=== PATIENT | male | born 1960 | race Caucasian/White ===

== ENCOUNTER 2018-08-11 08:13 | Day surgery (SDC) | payer OTHER ==
[~2018-08-11] VITALS: Ht 193 cm; Wt 97.3 kg
--- NOTE | 2018-08-11 12:32 | NUR ---
08/11/18 1232 Shivani Sanchez LATE ENTRY FOR TODAY DURING COLONOSCOPY 4ML NORMAL SALINE USED TO ELEVATE POLYP
== END 2018-08-11 10:31 | disposition home or self-care (01) ==
LOC: ORSCSDS 08:13
PROVIDERS: Internal Medicine Gastroenterology
PROC: 0DBP8ZX Excision of Rectum, Via Natural or Artificial Opening Endoscopic, Diagnostic (ICD-10-PCS; principal; 2018-08-11 09:30)
PROC: 0DBM8ZX Excision of Descending Colon, Via Natural or Artificial Opening Endoscopic, Diagnostic (ICD-10-PCS; principal; 2018-08-11 09:30)
DX: Z12.11 Encounter for screening for malignant neoplasm of colon (principal); D12.4 Benign neoplasm of descending colon; K62.1 Rectal polyp; K64.8 Other hemorrhoids; K57.30 Diverticulosis of large intestine without perforation or abscess without bleeding; F17.210 Nicotine dependence, cigarettes, uncomplicated
CPT/HCPCS: 88305; J1980; J2704; J7120

== ENCOUNTER 2020-02-15 16:06 | Emergency (ER) | payer OTHER ==
[~2020-02-15] VITALS: Ht 193 cm; Wt 95.2 kg
== END 2020-02-15 16:25 | disposition left against medical advice (07) ==
LOC: ER 16:06
DX: R07.9 Chest pain, unspecified (principal); Z53.21 Procedure and treatment not carried out due to patient leaving prior to being seen by health care provider
CPT/HCPCS: 93005; 93010

== ENCOUNTER 2022-03-24 07:58 | Day surgery (SDC) | payer OTHER ==
[~2022-03-24] VITALS: Ht 193 cm; Wt 94.7 kg
[2022-03-24] MEDS ORDERED: LISI20 PO (08:37)
[2022-03-24] MEDS ORDERED: Flonase 0.05% N16 GM (08:38)
--- NOTE | 2022-03-24 12:02 | NUR ---
03/24/22 1202 Delfin Mcbride PT'S DIASTOLIC BLOOD PRESSURE WAS RUNNING HIGH 100'S IN STEP DOWN. PT STATES THIS IS WHERE HIS BLOOD PRESSURE HAD BEEN BEFORE COMING TO THE CLINIC. HIS PCP IS AWARE, AND HE HAS RECENTLY STARTED LISINOPRIL.
== END 2022-03-24 11:50 | disposition home or self-care (01) ==
LOC: ORSCSDS 07:58
PROVIDERS: Otolaryngology
PROC: 0CBPXZX Excision of Tonsils, External Approach, Diagnostic (ICD-10-PCS; principal; 2022-03-24 09:25)
DX: C09.9 Malignant neoplasm of tonsil, unspecified (principal); I10 Essential (primary) hypertension; Z79.899 Other long term (current) drug therapy
CPT/HCPCS: 88305; 88331; 88341; 88342; J0330; J1100; J2001; J2405; J2704; J3010

== ENCOUNTER 2022-05-15 08:08 | Emergency (ER) | payer OTHER ==
[~2022-05-15] VITALS: Ht 193 cm; Wt 95.2 kg
[~2022-05-15 08:08] MED LIST: Flonase 0.05% N16 GM; LISI20 PO
[2022-05-15] MEDS ORDERED: METO10 PO (08:26)
[2022-05-15] MEDS ORDERED: ONDA4 PO (08:27)
[2022-05-15 08:37] LABS: BASOPHILS ABSOLUTE AUTO 0.03 K/mm3 (0.00-0.23); BASOPHILS PERCENT AUTO 0 % (0-2); EOSINOPHILS ABSOLUTE AUTO 0.02 K/mm3 (0.00-0.68); EOSINOPHILS PERCENT AUTO 0 % (0-6); Hematocrit 43.3 % (37.0-53.0); IMMATURE GRAN ABSOLUTE AUTO 0.04 K/mm3 (0.00-0.10); IMMATURE GRAN PERCENT AUTO 0 % (0-1); LYMPHOCYTES ABSOLUTE AUTO 0.68 K/mm3 (0.84-5.20); LYMPHOCYTES PERCENT AUTO 6 % (21-46); MONOCYTES ABSOLUTE AUTO 0.55 K/mm3 (0.16-1.47); MONOCYTES PERCENT AUTO 5 % (4-13); Mean Corpuscular HGB 31.7 pg (26.0-34.0); Mean Corpuscular HGB Conc 34.6 g/dL (31.5-36.5); Mean Corpuscular Volume 92 fL (80-100); Mean Platelet Volume 9.5 fL (9.1-12.4); NEUTROPHILS ABSOLUTE AUTO 10.04 K/mm3 (1.96-9.15); NEUTROPHILS PERCENT AUTO 88 % (41-73); Platelet Count 276 K/mm3 (150-400); RDW Coefficient Variation 12.1 % (11.7-14.2); RDW Standard Deviation 40.7 fL (35.1-46.3); Red Blood Cell Count 4.73 M/mm3 (4.30-5.90); White Blood Cell Count 11.36 K/mm3 (4.00-11.30)
[2022-05-15 08:54] LABS: Albumin, Blood 3.5 g/dL (3.4-5.0); Bun/Creatinine Ratio 18.7 (12.0-20.0); Calcium, Blood 9.1 mg/dL (8.5-10.1); Creatinine, Blood 0.8 mg/dL (0.60-1.20); Globulin, Blood 3.4 g/dL (2.2-4.0); Potassium, Blood 3.8 mmol/L (3.5-5.5); Total Protein, Blood 6.9 g/dL (6.4-8.2)
[2022-05-17] MEDS ORDERED: IBUP600 PO (14:39)
[2022-05-17] MEDS ORDERED: COLCHICINE0.6 MG PO (14:39)
== END 2022-05-15 11:23 | disposition home or self-care (01) ==
LOC: ER 08:08
PROVIDERS: Physician Assistant
DX: R07.9 Chest pain, unspecified (principal); C14.0 Malignant neoplasm of pharynx, unspecified; Z79.899 Other long term (current) drug therapy
CPT/HCPCS: 36415; 71046; 80053; 83880; 84484; 85025; 93005; 93010; A9270; J1885; J2270; J2405

== ENCOUNTER 2022-06-12 09:17 | Day surgery (SDC) | payer OTHER ==
[~2022-06-12] VITALS: Ht 193 cm; Wt 83.1 kg
[~2022-06-12 09:17] MED LIST changes: +ALPR.5 PO; +Ativan1 MG PO; +COLCHICINE0.6 MG PO; +Diflucan100 MG PO; +HYDR1TAB94 PO; +IBUP600 PO; +METO10 PO; +NYSTATIN100000 U10 PO; +OMEP20ER PO; +ONDA4 PO; +ONDA4ODT PO; +[UNRECOGNIZED DRUG - CODE]
--- NOTE | 2022-06-12 10:14 | NUR ---
History, Chart, Medications and Allergies reviewed before start of procedure. Lungs clear T/O to Auscultation. Patient confirms NPO status and agrees with scheduled surgery. Pre-Op teaching done. Pt verbalizes understanding. PT BELONGINGS PLACED UNDERNEATH GURNEY FOR SAFEKEEPING.
== END 2022-06-12 23:17 | disposition home or self-care (01) ==
LOC: ORSCMMR 09:17 → ORD 13:30 → ORSCMMR 23:17
PROVIDERS: Surgery
PROC: 8E0W4CZ Robotic Assisted Procedure of Trunk Region, Percutaneous Endoscopic Approach (ICD-10-PCS; principal; 2022-06-12 10:00)
PROC: 0DH64UZ Insertion of Feeding Device into Stomach, Percutaneous Endoscopic Approach (ICD-10-PCS; principal; 2022-06-12 10:00)
DX: C10.9 Malignant neoplasm of oropharynx, unspecified (principal); I10 Essential (primary) hypertension; Z87.891 Personal history of nicotine dependence; Z79.899 Other long term (current) drug therapy
CPT/HCPCS: 43653; S2900; 94664; A9270; J0694; J1100; J2250; J2405; J2704; J2795; J3010; J7120

== ENCOUNTER → 2022-12-02 | Outpatient (CLI) | payer OTHER | LOC: PLD 10:13 → LAB 10:13 → LAB SHORT 10:13 | DX: C44.311 Basal cell carcinoma of skin of nose (principal) | CPT/HCPCS: 88305 ==

== ENCOUNTER 2024-03-22 12:14 | Day surgery (SDC) | payer OTHER ==
[~2024-03-22] VITALS: Ht 193 cm; Wt 77.1 kg
[~2024-03-22 12:14] MED LIST changes: +Lactated Ringer's 1,000 ML IV ONE; +propofoL 50 ML IV ONE
[2024-03-22] MEDS ORDERED: Chantix1 MG (13:28)
[2024-03-22] MEDS ORDERED: Lactated Ringer's 1,000 ML IV ONE ×2 (14:00→14:51)
[2024-03-22] MEDS ORDERED: propofoL 50 ML IV ONE (14:45)
--- NOTE | 2024-03-22 15:16 | NUR ---
03/22/24 1516 Ashley Johnson 7MLS INJECTED FOR POLYPECTOMY.
[2024-03-22 15:41] VITALS: BP 141/93
== END 2024-03-22 15:50 | disposition home or self-care (01) ==
LOC: ORSCSDS 12:14
DX: Z12.11 Encounter for screening for malignant neoplasm of colon (principal); D12.3 Benign neoplasm of transverse colon; D12.4 Benign neoplasm of descending colon; K62.1 Rectal polyp; K57.30 Diverticulosis of large intestine without perforation or abscess without bleeding; K64.8 Other hemorrhoids; Z86.0101 Personal history of adenomatous and serrated colon polyps; I10 Essential (primary) hypertension; E78.5 Hyperlipidemia, unspecified; Z87.891 Personal history of nicotine dependence
CPT/HCPCS: 88305; J2704; J7120

== ENCOUNTER 2024-05-31 05:56 | Day surgery (SDC) | payer OTHER ==
[~2024-05-31] VITALS: Ht 193 cm; Wt 82.6 kg
[2024-05-31] VITALS (10 sets, daily range): BP systolic 122–170; BP diastolic 79–101
[~2024-05-31 05:56] MED LIST changes: +Chantix1 MG; -Lactated Ringer's 1,000 ML IV ONE; -propofoL 50 ML IV ONE
[2024-05-31] MEDS ORDERED: Lactated Ringer's 1,000 ML IV SCH (06:20)
[2024-05-31] MEDS ORDERED: CeFAZolin Sodium 2,000 MG in NS 100 ML IV SCH (06:20)
[2024-05-31] MEDS ORDERED: CeFAZolin Sodium 2,000 MG VIAL ONE (06:49)
[2024-05-31] MEDS ORDERED: Dexamethasone Sod Phos 10 MG/ML 1ML VIAL ONE (06:55)
[2024-05-31] MEDS ORDERED: Ondansetron HCl 2 MG / ML 2ML Vial ONE (06:55)
[2024-05-31] MEDS ORDERED: Lidocaine HCl 1% 30 ML SDV ONE (07:19)
[2024-05-31] MEDS ORDERED: propofoL 60 ML IV ONE (07:22)
[2024-05-31] MEDS ORDERED: Midazolam HCl 1MG / ML 2ML Vial ONE (07:22)
[2024-05-31] MEDS ORDERED: FentaNYL Citrate 50 MCG/ML 2 ML Injection ONE (07:22)
[2024-05-31] MEDS ORDERED: FentaNYL Citrate 50 MCG/ML 2 ML Injection IV PRN ×2 (08:05)
[2024-05-31] MEDS ORDERED: Albuterol 2.5 MG/3 ML VIAL INH PRN (08:05)
[2024-05-31] MEDS ORDERED: HYDROmorphone HCl/Pf 1MG SYR IV PRN ×2 (08:05)
[2024-05-31] MEDS ORDERED: Atropine Sulfate 0.1 MG/ML 10ML SYR IV PRN (08:05)
[2024-05-31] MEDS ORDERED: Ondansetron HCl 2 MG / ML 2ML Vial IV PRN (08:05)
[2024-05-31] MEDS ORDERED: ePHEDrine Sulfate 50 MG/ML 1ML Injection IV PRN (08:10)
[2024-05-31] MEDS ORDERED: OxyCODONE 5 mg/Acetamin 325 mg TABLET PO PRN (09:25)
--- NOTE | 2024-05-31 09:31 | NUR ---
Discharge instructions reviewed with patient. Patient verbalizes understanding. Copy given to patient to take home. Patient States Post-Procedure ride home has been arranged. Discharged via wheelchair to private car for ride home.
== END 2024-05-31 09:37 | disposition home or self-care (01) ==
LOC: ORSCMMR 05:56 → ORD 07:30 → ORSCMMR 07:30
PROVIDERS: Surgery
PROC: B543ZZA Ultrasonography of Right Jugular Veins, Guidance (ICD-10-PCS; principal; 2024-05-31 07:30)
PROC: 05HM33Z Insertion of Infusion Device into Right Internal Jugular Vein, Percutaneous Approach (ICD-10-PCS; principal; 2024-05-31 07:30)
PROC: 0JH63WZ Insertion of Totally Implantable Vascular Access Device into Chest Subcutaneous Tissue and Fascia, Percutaneous Approach (ICD-10-PCS; principal; 2024-05-31 07:30)
DX: C10.9 Malignant neoplasm of oropharynx, unspecified (principal); I10 Essential (primary) hypertension; E78.5 Hyperlipidemia, unspecified; Z79.899 Other long term (current) drug therapy; F17.210 Nicotine dependence, cigarettes, uncomplicated; Z85.828 Personal history of other malignant neoplasm of skin
CPT/HCPCS: 77001; A9270; C1788; J0690; J1100; J1642; J2250; J2405; J2704; J3010; J7120

== ENCOUNTER → 2024-06-23 | Outpatient (CLI) | payer OTHER | LOC: LAB SHORT 16:32 → LAB 16:32 | DX: L02.92 Furuncle, unspecified (principal) | CPT/HCPCS: 87070; 87075; 87076; 87205 ==